=== PATIENT | female | born 1980 | race Two or more races ===

== ENCOUNTER 2017-09-05 14:38 | Emergency (ER) | payer SELFPAY ==
[~2017-09-05] VITALS: Ht 162.6 cm; Wt 93.0 kg
[2017-09-05 14:56] VITALS: BP 137/91
[2017-09-05] MEDS ORDERED: IBUPROFEN600 MG ORAL (15:02)
[2017-09-05 15:08] VITALS: BP 137/91
--- NOTE | 2017-09-05 16:31 | Emergency Room Report ---
History of Present Illness General Chief Complaint: General Complaint Source: Patient Present Illness HPI 37-year-old female presents to ED for evaluation. Patient complaining of pain and tingling sensation in her left upper extremity which started yesterday. Pain is sharp, 10 out of 10, nonradiating. Denies any recent injury. Denies any chest pain or shortness of breath. Denies any slurred speech or facial droop. Denies any weakness in the arm or legs. No other aggravating or relieving factors. Denies any other associated symptoms Allergies: Coded Allergies: No Known Allergies (Unverified , 09/05/17) Patient History Past Medical History: none Past Surgical History: none Pertinent Family History: none Social History: Denies: smoking, alcohol use, drug use Now: No Immunizations: UTD Reviewed Nursing Documentation: PMH: Agreed, PSxH: Agreed Nursing Documentation-PMH Past Medical History: No Stated History Review of Systems All Other Systems: negative except mentioned in HPI Physical Exam Vital Signs Date Time Temp Pulse Resp B/P (MAP) Pulse Ox O2 Delivery O2 Flow Rate FiO2 09/05/17 14:42 98.9 90 18 137/91 96 Room Air 99.0 Sp02 EP Interpretation: reviewed, normal General Appearance: no apparent distress, alert, GCS 15, non-toxic Head: normocephalic Eyes: bilateral eye normal inspection, bilateral eye PERRL ENT: hearing grossly normal, normal pharynx, no angioedema, normal voice Neck: full range of motion, supple/symm/no masses Respiratory: chest non-tender, lungs clear, normal breath sounds, speaking full sentences Cardiovascular #1: regular rate, rhythm, no edema Gastrointestinal: normal inspection Rectal: deferred Genitourinary: no CVA tenderness Musculoskeletal: normal range of motion, tender - L wrist, L elbow Neurologic: alert, oriented x3, responsive, motor strength/tone normal, sensory intact, speech normal Psychiatric: normal inspection Skin: normal inspection Lymphatic: normal inspection Medical Decision Making Diagnostic Impression: Primary Impression: Elbow pain Qualified Codes: M25.522 - Pain in left elbow Additional Impression: Left wrist pain ER Course Hospital Course 37 yo F presents to ED c/o L wrist pain, L elbow pain Differential diagnoses include: Fracture, dislocation, sprain, contusion, bursitis Clinical course Patient placed on stretcher. After initial history, physical exam reveals an middle-aged female in no acute distress. There is some tenderness to the to the left wrist, left elbow. Full range of motion noted. Pain is palpable. No focal neurological deficits No slurred speech or facial droop. Cranial nerves II through XII grossly intact. I am not suspecting acute process such as CVA or cardiac. patient has no risk factors. reassurane given placed in wrist splint, L elbow lisa wrap Diagnosis - elbow pain, wrist pain stable and discharged to home with prescription for Motrin. Followup with PMD. Return to ED if symptoms recur or worsen Last Vital Signs Date Time Temp Pulse Resp B/P (MAP) Pulse Ox O2 Delivery O2 Flow Rate FiO2 09/05/17 15:08 99.0 90 18 137/91 96 Room Air 99.0 Status: improved Disposition: HOME, SELF-CARE Condition: Stable Scripts Ibuprofen* (MOTRIN*) 600 Mg Tablet 600 MG ORAL Q8H Y for For Pain, #30 TAB 0 Refills Prov: RAVEN BOYD M.D. 09/05/17 Referrals: NOT CHOSEN IPA/,REFERRING (PCP) Patient Instructions: Tendchristi, [id number] RAVEN BOYD M.D. Sep 05, 2017 16:31
== END 2017-09-05 15:10 | disposition home or self-care (01) ==
LOC: EMR 15:00
DX: M25.522 Pain in left elbow (principal); M25.532 Pain in left wrist
CPT/HCPCS: 99283